=== PATIENT | female | born 1950 | race Caucasian/White ===

== ENCOUNTER 2021-06-29 13:02 | Emergency (ER) | payer MEDICARE, BC ==
[~2021-06-29] VITALS: Ht 160 cm; Wt 125.0 kg
[2021-06-29] MEDS ORDERED: IV NORMAL SALINE 1,000ML 1,000 ML IV SCH (13:45)
--- NOTE | 2021-06-29 13:56 | PHYS DOC ---
Past History Past Surgical History: Appendectomy, Cholecystectomy, , Hysterectomy, Oophorectomy, Tonsillectomy, Tubal ligation, Other Additional Past Surgical Histo: myelogram, knee scope, myelogram, ex lap, carpal tunnel bilat General Adult EDM: Chief Complaint: ABDOMINAL PAIN HPI: HPI: Patient is a 71-year-old female who presents to the emergency department for le ft lower quadrant pain that started 3 days ago. She rates the pain 7 out of 10. She describes the pain as an ache and a cramp. No treatment prior to arrival. Patient reports that the pain is worse when she is laying flat or sitting. She denies nausea, vomiting, diarrhea, urinary symptoms, fever, blood in her stools, flank pain. Patient has a history of diabetes, hypertension, hyperlipidemia, hysterectomy and abdominal adhesions from hysterectomy Review of Systems: Review of Systems: Constitutional: See HPI GI: See HPI : See HPI Musculoskeletal: See HPI Current Medications: Current Meds: Current Medications Medications (Trade) Dose Ordered Sig/Antionette Start Time Stop Time Status Last Admin Dose Admin Fentanyl Citrate (Fentanyl 2ml Vial) 50 mcg 1X ONCE 06/29/21 13:45 06/29/21 13:46 UNV Sodium Chloride 1,000 ml @ 1,000 mls/hr Q1H 06/29/21 13:45 06/29/21 14:44 UNV Physical Exam: PE: Constitutional: Well developed, well nourished, no acute distress, non-toxic appearance. [] HENT: Normocephalic, atraumatic, bilateral external ears normal, oropharynx moist, no oral exudates, nose normal. [] Eyes: PERRL, EOMI, conjunctiva normal, no discharge. [] Neck: Normal range of motion, no stridor Cardiovascular:Heart rate regular rhythm, no murmur [] Lungs & Thorax: Bilateral breath sounds clear to auscultation [] Abdomen: Bowel sounds normal, soft, no tenderness, no masses, no pulsatile masses. [] Skin: Warm, dry, no erythema, no rash. [] Back: No tenderness, no CVA tenderness. [] Extremities: No tenderness, no cyanosis, no clubbing, ROM intact, no edema. [] Neurologic: Alert and oriented X 3, normal motor function, normal sensory function, no focal deficits noted. [] Psychologic: Affect normal, judgement normal, mood normal. [] Current Patient Data: Labs: Laboratory Tests Test 06/29/21 13:41 06/29/21 13:47 06/29/21 15:59 White Blood Count 4.3 x10^3/uL Red Blood Count 3.89 x10^6/uL Hemoglobin 11.7 g/dL Hematocrit 36.2 % Mean Corpuscular Volume 93 fL Mean Corpuscular Hemoglobin 30 pg Mean Corpuscular Hemoglobin Concent 32 g/dL Red Cell Distribution Width 15.0 % Platelet Count 187 x10^3/uL Neutrophils (%) (Auto) 60 % Lymphocytes (%) (Auto) 29 % Monocytes (%) (Auto) 8 % Eosinophils (%) (Auto) 2 % Basophils (%) (Auto) 1 % Neutrophils # (Auto) 2.6 x10^3uL Lymphocytes # (Auto) 1.3 x10^3/uL Monocytes # (Auto) 0.3 x10^3/uL Eosinophils # (Auto) 0.1 x10^3/uL Basophils # (Auto) 0.1 x10^3/uL Sodium Level 138 mmol/L Potassium Level 4.6 mmol/L Chloride Level 105 mmol/L Carbon Dioxide Level 22 mmol/L Anion Gap 11 Blood Urea Nitrogen 24 mg/dL Creatinine 0.8 mg/dL Estimated GFR (Cockcroft-Gault) 70.3 BUN/Creatinine Ratio 30 Glucose Level 94 mg/dL Calcium Level 9.6 mg/dL Total Bilirubin 0.4 mg/dL Aspartate Amino Transf (AST/SGOT) 21 U/L Alanine Aminotransferase (ALT/SGPT) 25 U/L Alkaline Phosphatase 81 U/L SF-Zrg-[id number]-Type Natriuretic Peptide 158 pg/mL Total Protein 7.5 g/dL Albumin 3.7 g/dL Albumin/Globulin Ratio 1.0 Lipase 128 U/L Urine Collection Type Unknown U cath Urine Color Yellow Yellow Urine Clarity Clear Clear Urine pH 5.0 5.0 Urine Specific [place] <=1.005 1.010 Urine Protein Neg Neg Urine Glucose (UA) Neg mg/dL Neg mg/dL Urine Ketones (Stick) Neg mg/dL Neg mg/dL Urine Blood Trace Large Urine Nitrite Neg Neg Urine Bilirubin Neg Neg Urine Urobilinogen Dipstick 0.2 mg/dL 0.2 mg/dL Urine Leukocyte Esterase Trace Neg Urine RBC 1-2 /HPF 20-40 /HPF Urine WBC 5-10 /HPF 1-4 /HPF Urine Squamous Epithelial Cells Many /LPF Few /LPF Urine Bacteria Few /HPF Few /HPF Current Medications Medications (Trade) Dose Ordered Sig/Antionette Route PRN Reason Start Time Stop Time Status Last Admin Dose Admin Sodium Chloride 1,000 ml @ 1,000 mls/hr Q1H IV 06/29/21 13:45 06/29/21 14:44 DC 06/29/21 14:00 Fentanyl Citrate (Fentanyl 2ml Vial) 50 mcg 1X ONCE IVP 06/29/21 13:45 06/29/21 13:57 DC 06/29/21 14:01 Iohexol (Omnipaque 300 Mg/ml) 75 ml 1X ONCE IV 06/29/21 14:00 06/29/21 14:01 DC 06/29/21 14:29 Info (Do NOT chart on this entry -- for MONITORING) 1 each PRN DAILY PRN MC SEE COMMENTS 06/29/21 14:00 07/01/21 13:59 Fentanyl Citrate (Fentanyl 2ml Vial) 50 mcg 1X ONCE IVP 06/29/21 15:15 06/29/21 15:16 DC 06/29/21 15:14 Vital Signs: Vital Signs Date Time Temp Pulse Resp B/P (MAP) Pulse Ox O2 Delivery O2 Flow Rate FiO2 06/29/21 13:30 98.0 69 18 177/66 (103) 100 EKG: EKG: [] Radiology/Procedures: Radiology/Procedures: []EXAM: CT Abdomen and Pelvis with IV contrast CLINICAL HISTORY: Reason: left lower quadrant abdominal pain 75 OMNI 300 / Spl. Instructions: omni 300 75ml iv / History: . COMPARISON: none TECHNIQUE: Helical CT of the abdomen and pelvis was performed following the administration of intravenous contrast. Axial, coronal and sagittal reformatted images were generated. PQRS compliance statement - One or more of the following individualized dose reduction techniques were utilized for this study: 1. Automated exposure control 2. Adjustment of the mA and/or kV according to patient size 3. Use of iterative reconstruction technique FINDINGS: Lower Chest: Minimal bibasilar and lingular subsegmental atelectasis. Mild to moderate coronary artery atherosclerotic disease. Heart size is normal. No pericardial effusion. Abdomen and Pelvis: Liver is normal in size and attenuation. No focal hepatic lesions. Gallbladder is not definitely visualized. No biliary ductal dilation. Spleen with adjacent small splenule is normal. Adrenal glands are normal. Moderate fatty replaced pancreas is unremarkable. Symmetric renal parenchymal enhancement. Trace nonspecific symmetric perinephric stranding, likely senescent. No nephroureteral lithiasis. No hydroureteronephrosis. Stomach is unremarkable. Tiny hiatal hernia. No evidence of bowel obstruction or focal inflammation. Scattered colonic diverticulosis without diverticulitis. The appendix is not definitely visualized. Mild colonic stool burden. No free intra-abdominal air or free fluid. No pathologically enlarged abdominal or pelvic adenopathy. Mild aortobiiliac atherosclerotic disease. Thrombosing and peripherally calcified 6 mm splenic artery aneurysm. There is a 11 cm area of dermal thickening with associated stranding of the underlying subcutaneous tissues in the left lateral mid to lower abdominal wall as seen on axial image 49 as well as coronal image 22. There is no associated fluid collection to suggest abscess formation. Urinary bladder is normal. Uterus is absent. No suspicious adnexal masses. No acute or suspicious osseous abnormalities. Findings of thoracic DISH IMPRESSION: 1. Area of dermal thickening with associated stranding of the underlying subcutaneous tissues in the left lateral mid to lower abdominal wall favoring an area of cellulitis. No fluid collection to suggest abscess formation at this time. Correlation with physical exam findings. Resolution of this area preferably with ultrasound is recommended to exclude underlying malignancy. 2. No evidence of acute intra-abdominal or pelvic abnormality. Electronically signed by: Effie Plata DO (06/29/2021 3:22 PM) [id number] DICTATED AND SIGNED BY: EFFIE PLATA DO DATE: 06/29/21 1505 CC: JENNIFER CARDONA APRN; SUSAN BATRES MD ~ Heart Score: C/O Chest Pain: N/A Risk Factors: Risk Factors: DM, Current or recent (<one month) smoker, HTN, HLP, family history of CAD, obesity. Risk Scores: Score 0 - 3: 2.5% MACE over next 6 weeks - Discharge Home Score 4 - 6: 20.3% MACE over next 6 weeks - Admit for Clinical Observation Score 7 - 10: 72.7% MACE over next 6 weeks - Early Invasive Strategies Course & Med Decision Making: Course & Med Decision Making Pertinent Labs and Imaging studies reviewed. (See chart for details) [] Patient presents to the emergency department for left lower quadrant pain x3 days. Work-up in the ER consisted of blood work including lipase, urinalysis and CT imaging of abdomen and pelvis. Patient treated with IV fluids and pain medication. Patient's blood work was unremarkable. Urinalysis showed leukocytes, bacteria and white blood cells with blood but had many squamous cells. Consulted supervising hoa wiggins. A straight cath was ordered for sterile urine sample. CT imaging of abdomen and pelvis shows perinephric stranding. The CT scan also shows dermal thickening to the left lower lateral aspect of the abdomen. Upon physical exam, patient has no signs of cellulitis such as redness, warmth, swelling or drainage to that site. She has no dermal pain reported. Patient has no rash noted to her lower abdomen or flank. Straight cath urinalysis does not show any infection. Patient will be discharged home with pain medication. She is advised to follow-up with her primary care provider. I discussed with patient all findings and diagnostic testing as well as the need to follow-up with PCP for further evaluation and treatment or return to the ER if any new or worsening symptoms. Strict return precautions were also discussed at length. Patient voiced understanding and agreement with the plan. Patient is hemodynamically stable at the time of disposition. [employer] Disclaimer: [employer] Disclaimer: This electronic medical record was generated, in whole or in part, using a voice recognition dictation system. Departure Departure: Impression: Primary Impression: Abdominal pain Qualified Codes: R10.32 - Left lower quadrant pain Disposition: HOME / SELF CARE / HOMELESS Condition: STABLE Referrals: SUSAN BATRES MD (PCP) Patient Instructions: Abdominal Pain (Nonspecific) Additional Instructions: You are seen in the emergency department today for abdominal pain. As we discussed, your blood work and urinalysis were unremarkable. We discussed the CT findings. Please monitor your abdomen for any skin changes that would emely steffen cellulitis such as redness, warmth, swelling, rash/lesions, increased pain. You are being discharged home with pain medication. This medication may cause sedation so do not take needs to be alert, driving a vehicle or with alcohol. Increase your fluids. Follow-up with your primary care provider tomorrow regarding your ER visit. Return to the emergency department if you develop worsening of your abdominal pain, severe back pain, intractable nausea or vomiting, high fevers refractory to treatment, weakness. Scripts Hydrocodone Bit/Acetaminophen (HYDROCODONE-APAP 5-325 ) 1 Each Tablet 1 TAB PO PRN Q6HRS PRN for PAIN for 2 Days, #8 TAB 0 Refills Prov: JENNIFER CARDONA APRN 06/29/21 JENNIFER CARDONA APRN Jun 29, 2021 13:56
[2021-06-29] MEDS ORDERED: IOHEXOL 300 MG/ML 75 ML VIAL. IV ONE (14:00)
[2021-06-29] MEDS ORDERED: CONTRAST GIVEN. MC PRN (14:00)
[2021-06-29 14:07] LABS: BASO # 0.1 x10^3/uL (0.0-0.2); BASO % 1 % (0-3); EOS # 0.1 x10^3/uL (0.0-0.7); EOS % 2 % (0-3); HEMATOCRIT 36.2 % (36.0-47.0); HEMOGLOBIN 11.7 g/dL (12.0-15.5); LYMPH # 1.3 x10^3/uL (1.0-4.8); LYMPH % 29 % (24-48); MEAN CORPUSCULAR HEMOGLOBIN 30 pg (25-35); MEAN CORPUSCULAR HGB CONC 32 g/dL (31-37); MEAN CORPUSCULAR VOLUME 93 fL (79-100); MONO # 0.3 x10^3/uL (0.0-1.1); MONO % 8 % (0-9); NEUT # 2.6 x10^3uL (1.8-7.7); NEUT % 60 % (31-73); PLATELET COUNT 187 x10^3/uL (140-400); RED BLOOD COUNT 3.89 x10^6/uL (3.50-5.40); WHITE BLOOD COUNT 4.3 x10^3/uL (4.0-11.0)
[2021-06-29 14:18] LABS: BACTERIA,URINE FEW /HPF (0-FEW); CLARITY,URINE CLEAR; COLOR,URINE YELLOW; GLUCOSE,URINE NEG (NEG); NITRITE,URINE NEG (NEG); SQUAMOUS EPITHELIAL CELL,UR MANY /LPF; UROBILINOGEN,URINE 0.2 mg/dL (0.2 mg/dL)
[2021-06-29 14:19] LABS: CALCIUM 9.6 mg/dL (8.5-10.1); CREATININE 0.8 mg/dL (0.6-1.0); GFR 70.3; POTASSIUM 4.6 mmol/L (3.5-5.1)
[2021-06-29 14:22] LABS: ALBUMIN 3.7 g/dL (3.4-5.0); TOTAL BILIRUBIN 0.4 mg/dL (0.2-1.0); TOTAL PROTEIN 7.5 g/dL (6.4-8.2)
--- NOTE | 2021-06-29 15:24 | RAD ---
EXAM: CT Abdomen and Pelvis with IV contrast CLINICAL HISTORY: Reason: left lower quadrant abdominal pain 75 OMNI 300 / Spl. Instructions: omni 30 0 75ml iv / History: . COMPARISON: none TECHNIQUE: Helical CT of the abdomen and pelvis was performed following the administration of intrave nous contrast. Axial, coronal and sagittal reformatted images were generated. PQRS compliance statement - One or more of the following individualized dose reduction techniques wer e utilized for this study: 1. Automated exposure control 2. Adjustment of the mA and/or kV according to patient size 3. Use of iterative reconstruction technique FINDINGS: Lower Chest: Minimal bibasilar and lingular subsegmental atelectasis. Mild to moderate coronary artery atheroscler otic disease. Heart size is normal. No pericardial effusion. Abdomen and Pelvis: Liver is normal in size and attenuation. No focal hepatic lesions. Gallbladder is not definitely visu alized. No biliary ductal dilation. Spleen with adjacent small splenule is normal. Adrenal glands are normal. Moderate fatty replaced pancreas is unremarkable. Symmetric renal parenchymal enhancement. T race nonspecific symmetric perinephric stranding, likely senescent. No nephroureteral lithiasis. No h ydroureteronephrosis. Stomach is unremarkable. Tiny hiatal hernia. No evidence of bowel obstruction or focal inflammation. Scattered colonic diverticulosis without diverticulitis. The appendix is not definitely visualized. M ild colonic stool burden. No free intra-abdominal air or free fluid. No pathologically enlarged abdom inal or pelvic adenopathy. Mild aortobiiliac atherosclerotic disease. Thrombosing and peripherally ca lcified 6 mm splenic artery aneurysm. There is a 11 cm area of dermal thickening with associated stranding of the underlying subcutaneous t issues in the left lateral mid to lower abdominal wall as seen on axial image 49 as well as coronal i mage 22. There is no associated fluid collection to suggest abscess formation. Urinary bladder is normal. Uterus is absent. No suspicious adnexal masses. No acute or suspicious osseous abnormalities. Findings of thoracic DISH IMPRESSION: 1. Area of dermal thickening with associated stranding of the underlying subcutaneous tissues in the left lateral mid to lower abdominal wall favoring an area of cellulitis. No fluid collection to sugge st abscess formation at this time. Correlation with physical exam findings. Resolution of this area p referably with ultrasound is recommended to exclude underlying malignancy. 2. No evidence of acute intra-abdominal or pelvic abnormality. Electronically signed by: Peewee Plata DO (06/29/2021 3:22 PM) [id number]
[2021-06-29 16:50] LABS: BACTERIA,URINE FEW /HPF (0-FEW); CLARITY,URINE CLEAR; COLOR,URINE YELLOW; GLUCOSE,URINE NEG (NEG); NITRITE,URINE NEG (NEG); RBC,URINE 20-40 /HPF (0-2); UROBILINOGEN,URINE 0.2 mg/dL (0.2 mg/dL)
[2021-06-29 16:51] LABS: SQUAMOUS EPITHELIAL CELL,UR FEW /LPF
[2021-06-29] MEDS ORDERED: HYDR-2155 PO (17:35)
[2021-06-29 17:45] VITALS: BP 151/76
[2021-06-29] MEDS ORDERED: MORPHINE SULFATE 2 MG/ML DISP.SYRIN. IV ONE (17:45)
== END 2021-06-29 17:55 | disposition home or self-care (01) ==
LOC: ER 13:02
DX: R10.32 Left lower quadrant pain (principal); E11.9 Type 2 diabetes mellitus without complications; I10 Essential (primary) hypertension; E78.5 Hyperlipidemia, unspecified; Z90.49 Acquired absence of other specified parts of digestive tract; Z90.89 Acquired absence of other organs; Z98.890 Other specified postprocedural states; Z90.710 Acquired absence of both cervix and uterus; Z90.722 Acquired absence of ovaries, bilateral; Z98.51 Tubal ligation status
CPT/HCPCS: 36415; 74177; 80053; 81001; 83690; 83880; 85025; 87086; 96361; 96374; 96375; 96376; 99285; J2270; J3010; J7030; Q9967

== ENCOUNTER 2021-07-02 06:12 | Emergency (ER) | payer MEDICARE, BC ==
[~2021-07-02] VITALS: Ht 160 cm; Wt 125.0 kg
[~2021-07-02 06:12] MED LIST: HYDR-2155 PO
--- NOTE | 2021-07-02 06:52 | PHYS DOC ---
Past History Past Surgical History: Appendectomy, Cholecystectomy, , Hysterectomy, Oophorectomy, Tonsillectomy, Tubal ligation, Other Additional Past Surgical Histo: myelogram, knee scope, myelogram, ex lap, carpal tunnel bilat Alcohol Use: None General Adult EDM: Chief Complaint: ABDOMINAL PAIN HPI: HPI: Patient is a 68-year-old female coming to the emergency department for continued left lower abdominal pain. Patient was seen here 3 days ago for the same pain. Was worked up and prescribed hydrocodone. Patient was discharged follow-up with her primary care provider in case of developing cellulitis (was shown to have some inflammation in the abdominal wall on CT) but no overlying evidence of cellulitis. Patient is about to get into her primary care provider. Patient's been taking hydrocodone and says it helps with the pain but ran out yesterday morning and had recurrence of the pain last night. Patient has not had a bowel movement in the past 3 days. Denies any fevers, chills, night sweats, nausea, vomiting, or urinary changes. Review of Systems: Review of Systems: All other systems within normal limits except for as noted in the HPI Allergies: Allergies: Allergies Coded Allergies Type Severity Reaction Last Updated Verified Sulfa (Sulfonamide Antibiotics) Allergy Unknown 06/29/21 Yes latex Allergy Unknown 06/29/21 Yes Physical Exam: PE: Constitutional: Well developed, well nourished, no acute distress, non-toxic appearance. [] HENT: Normocephalic, atraumatic, bilateral external ears normal, nose normal. [] Eyes: PERRLA, conjunctiva normal, no discharge. [] Neck: No rigidity, supple, no stridor. [] Cardiovascular: Regular rate and rhythm, brisk cap refill [] Lungs & Thorax: Non labored symmetric respirations, no tachypnea or respiratory distress [] Abdomen: Soft, nondistended, tenderness over left lower quadrant increase of pannus. Skin: Warm, dry, no erythema, no rash. Mild redness in left lower quadrant in crease left pannus [] Back: Unremarkable Extremities: No deformities, range of motion grossly intact, no lower extremity edema [] Neurologic: Alert and oriented X 3, no focal deficits noted. [] Psychologic: Affect normal, judgement normal, mood normal. [] Current Patient Data: Vital Signs: Vital Signs Date Time Temp Pulse Resp B/P (MAP) Pulse Ox O2 Delivery O2 Flow Rate FiO2 07/02/21 06:12 97.6 73 18 173/68 (103) 98 Room Air EKG: EKG: [] Radiology/Procedures: Radiology/Procedures: [address] [id number] IMAGING REPORT Signed PATIENT: ARLET HOYTOUNT: [id number] : 1950 LOCATION: ER AGE: 71 SEX: F EXAM STATUS: REG ER ORD. PHYSICIAN: FRANKY CASTRO MD REASON: worsening LLQ pain, OMNI 300, 75ml PROCEDURE: CT ABD PELV W/ IV CONTRST ONLY Exam Date: 07/02/2021 7:[address] ABDOMEN+PELVIS W Indication: Reason: worsening LLQ pain, OMNI 300, 75ml / Spl. Instructions: / History: . TECHNIQUE: CT examination of the abdomen and pelvis was performed following the administration of nonionic intravenous contrast. One or more of the following dose reduction techniques were utilized: *Automated exposure control (AEC) *Adjustment of mA and/or kV according to patient size *Use of iterative reconstruction technique *CT scan done according to ALARA, or ALARA/IMAGE GENTLY COMPARISON: June 29, 2021 FINDINGS: The visualized lung bases are clear. The liver, gallbladder, spleen, pancreas, adrenal glands and kidneys are normal. Urinary bladder is normal in appearance. There is no bowel obstruction or inflammation. No evidence for acute appendicitis. Mild atherosclerotic calcifications are seen. No lymphadenopathy or ascites is seen. Degenerative changes are seen in the spine. Again seen is an area along the left lower abdominal wall which demonstrates cutaneous thickening and subcutaneous fat stranding. This is nonspecific and could represent cellulitis versus soft tissue contusion. There is no loculated collection to suggest abscess or hematoma. IMPRESSION: Cutaneous thickening and subcutaneous fat stranding is again seen in a focal are a along the lower left anterior abdominal wall. This is likely slightly improved compared to the prior exam. This is nonspecific and could represent cellulitis versus soft tissue contusion. There is no loculated collection to suggest abscess or hematoma. No evidence of acute intra-abdominal pathology. Electronically signed by: Esequiel Marino MD (07/02/2021 7:56 AM) [id number] DICTATED AND SIGNED BY: ESEQUIEL MARINO MD DATE: 07/02/21 0744 CC: FRANKY CASTRO MD; SUSAN BATRES MD ~ [] Heart Score: C/O Chest Pain: No Risk Factors: Risk Factors: DM, Current or recent (<one month) smoker, HTN, HLP, family history of CAD, obesity. Risk Scores: Score 0 - 3: 2.5% MACE over next 6 weeks - Discharge Home Score 4 - 6: 20.3% MACE over next 6 weeks - Admit for Clinical Observation Score 7 - 10: 72.7% MACE over next 6 weeks - Early Invasive Strategies Course & Med Decision Making: Course & Med Decision Making Pertinent Labs and Imaging studies reviewed. (See chart for details) [] Dragon Disclaimer: Dragon Disclaimer: This electronic medical record was generated, in whole or in part, using a voice recognition dictation system. Departure Departure: Impression: Primary Impression: Abdominal wall cellulitis Disposition: HOME / SELF CARE / HOMELESS Condition: STABLE Referrals: SUSAN BATRES MD (PCP) Patient Instructions: Cellulitis Scripts Hydrocodone Bit/Acetaminophen (HYDROCODONE-APAP 5-325 ) 1 Each Tablet 1 TAB PO PRN Q6HRS PRN for PAIN for 3 Days, #15 TAB 0 Refills Caution: this medication can make you drowsy. Do not drive or operate heavy machinery when using this medication. Prov: FRANKY CASTRO MD 07/02/21 Cephalexin (CEPHALEXIN) 500 Mg Tablet 1 TAB PO TID for antibiotic for 7 Days, #21 TAB Prov: FRANKY CASTRO MD 07/02/21 FRANKY CASTRO MD Jul 02, 2021 06:52
[2021-07-02] MEDS ORDERED: MORPHINE SULFATE 4 MG/ML DISP.SYRIN. IV ONE (07:00)
[2021-07-02] MEDS ORDERED: IOHEXOL 300 MG/ML 75 ML VIAL. IV ONE (07:00)
[2021-07-02] MEDS ORDERED: CONTRAST GIVEN. MC PRN (07:00)
[2021-07-02 07:02] LABS: BASO % 0 % (0-3); EOS # 0.2 x10^3/uL (0.0-0.7); EOS % 3 % (0-3); HEMATOCRIT 34.7 % (36.0-47.0); HEMOGLOBIN 11.3 g/dL (12.0-15.5); LYMPH # 1.8 x10^3/uL (1.0-4.8); LYMPH % 36 % (24-48); MEAN CORPUSCULAR HEMOGLOBIN 30 pg (25-35); MEAN CORPUSCULAR HGB CONC 33 g/dL (31-37); MEAN CORPUSCULAR VOLUME 93 fL (79-100); MONO # 0.5 x10^3/uL (0.0-1.1); MONO % 9 % (0-9); NEUT # 2.5 x10^3uL (1.8-7.7); NEUT % 51 % (31-73); PLATELET COUNT 185 x10^3/uL (140-400); RED BLOOD COUNT 3.74 x10^6/uL (3.50-5.40); RED CELL DISTRIBUTION WIDTH 14.9 % (11.5-14.5); WHITE BLOOD COUNT 4.9 x10^3/uL (4.0-11.0)
[2021-07-02 07:08] LABS: CALCIUM 9.6 mg/dL (8.5-10.1); CREATININE 0.9 mg/dL (0.6-1.0); GFR 61.4
[2021-07-02 07:14] LABS: ALBUMIN 3.4 g/dL (3.4-5.0); ALBUMIN/GLOBULIN RATIO 0.8 (1.0-1.7); TOTAL BILIRUBIN 0.4 mg/dL (0.2-1.0); TOTAL PROTEIN 7.5 g/dL (6.4-8.2)
[2021-07-02 07:15] LABS: BACTERIA,URINE MOD /HPF (0-FEW); CLARITY,URINE CLEAR; COLOR,URINE YELLOW; GLUCOSE,URINE NEG (NEG); NITRITE,URINE NEG (NEG); RBC,URINE OCC /HPF (0-2); SQUAMOUS EPITHELIAL CELL,UR MOD /LPF; UROBILINOGEN,URINE 0.2 mg/dL (0.2 mg/dL); WBC,URINE 20-40 /HPF (0-4)
--- NOTE | 2021-07-02 07:58 | RAD ---
Exam Date: 07/02/2021 7:[address] ABDOMEN+PELVIS W Indication: Reason: worsening LLQ pain, OMNI 300, 75ml / Spl. Instructions: / History: . TECHNIQUE: CT examination of the abdomen and pelvis was performed following the administration of no nionic intravenous contrast. One or more of the following dose reduction techniques were utilized: *Automated exposure control (AEC) *Adjustment of mA and/or kV according to patient size *Use of iterative reconstruction technique *CT scan done according to ALARA, or ALARA/IMAGE GENTLY COMPARISON: June 29, 2021 FINDINGS: The visualized lung bases are clear. The liver, gallbladder, spleen, pancreas, adrenal glands and kidneys are normal. Urinary bladder is normal in appearance. There is no bowel obstruction or inflammation. No evidence for acute appendicitis. Mild atherosclerotic calcifications are seen. No lymphadenopathy or ascites is seen. Degenerative changes are seen in the spine. Again seen is an area along the left lower abdominal wall which demonstrates cutaneous thickening and subcutaneous fat stranding. This is nonspecific and could represent cellulitis versus soft tissue c ontusion. There is no loculated collection to suggest abscess or hematoma. IMPRESSION: Cutaneous thickening and subcutaneous fat stranding is again seen in a focal area along the lower lef t anterior abdominal wall. This is likely slightly improved compared to the prior exam. This is non specific and could represent cellulitis versus soft tissue contusion. There is no loculated collecti on to suggest abscess or hematoma. No evidence of acute intra-abdominal pathology. Electronically signed by: Yung Marino MD (07/02/2021 7:56 AM) [id number]
[2021-07-02] MEDS ORDERED: IV NORMAL SALINE 50ML 50 ML ONE (08:17)
[2021-07-02] MEDS ORDERED: cefTRIAXone SODIUM 1 GM VIAL ONE (08:17)
[2021-07-02] MEDS ORDERED: CEPH500T PO (08:22)
[2021-07-02] MEDS ORDERED: HYDR-2155 PO (08:22)
[2021-07-02 09:00] VITALS: BP 143/54
== END 2021-07-02 09:00 | disposition home or self-care (01) ==
LOC: ER 06:12
DX: L03.311 Cellulitis of abdominal wall (principal); Z90.89 Acquired absence of other organs; Z90.49 Acquired absence of other specified parts of digestive tract; Z98.890 Other specified postprocedural states; Z90.710 Acquired absence of both cervix and uterus; Z98.51 Tubal ligation status; Z90.722 Acquired absence of ovaries, bilateral; Z88.2 Allergy status to sulfonamides; Z91.040 Latex allergy status
CPT/HCPCS: 36415; 74177; 80053; 81001; 83690; 85025; 86140; 87086; 96365; 96375; 99285; J0696; J2270; Q9967; 87077; 87186